=== PATIENT | male | born 1980 | race Asian ===

== ENCOUNTER 2020-08-23 04:36 | Emergency (ER) | payer SELFPAY ==
[~2020-08-23] VITALS: Ht 167.6 cm; Wt 72.6 kg
[2020-08-23 04:40] VITALS: BP 139/70
[2020-08-23] MEDS ORDERED: SULF1TAB48 PO (04:48)
[2020-08-23] MEDS ORDERED: CEPH500C2 PO (04:48)
== END 2020-08-23 04:52 | disposition home or self-care (01) ==
LOC: ER 04:36
DX: L02.31 Cutaneous abscess of buttock (principal)

== ENCOUNTER → 2023-12-14 | Emergency (ER) | payer MEDICAID ==
[~2023-12-14] VITALS: Ht 167.6 cm; Wt 77.1 kg
[~2023-12-14] MED LIST: CEPH500C2 PO; CLIN300C12 PO; CLINDAMYCIN HCL 150 MG CAPSULE ONE; SULF1TAB48 PO
[2023-12-14 17:36] VITALS: BP 138/87; TEMP 98.3
[2023-12-14] MEDS: CLINDAMYCIN HCL 150 MG CAPSULE PO ONE (19:04)
[2023-12-14 19:51] VITALS: O2SAT 99
== END | disposition home or self-care (01) ==
LOC: ER 17:23
DX: L03.221 Cellulitis of neck (principal); Z79.899 Other long term (current) drug therapy

== ENCOUNTER 2024-04-05 22:49 | Emergency (ER) | payer SELFPAY ==
[~2024-04-05] VITALS: Ht 167.6 cm; Wt 77.1 kg
[~2024-04-05 22:49] MED LIST changes: -CLINDAMYCIN HCL 150 MG CAPSULE ONE
[2024-04-06 03:05] VITALS: BP 126/82; TEMP 98.3
[2024-04-06] MEDS ORDERED: CLINDAMYCIN HCL 150 MG CAPSULE ONE (03:18)
[2024-04-06 03:22] VITALS: O2SAT 98
[2024-04-06] MEDS: CLINDAMYCIN HCL 150 MG CAPSULE PO ONE (03:22)
== END 2024-04-06 03:23 | disposition left against medical advice (07) ==
LOC: ER 22:53
DX: L03.116 Cellulitis of left lower limb (principal); M79.605 Pain in left leg